=== PATIENT | female | born 1970 | race Hispanic/Latino ===

== ENCOUNTER 2018-08-21 18:04 | Emergency (ER) | payer OTHER ==
[2018-08-21] MEDS ORDERED: KETOROLAC TROMETHAMINE 60 MG/2 ML VIAL ONE (19:31)
== END 2018-08-21 20:15 | disposition home or self-care (01) ==
LOC: EDH 18:04
DX: S63.591A Other specified sprain of right wrist, initial encounter (principal); S43.492A Other sprain of left shoulder joint, initial encounter; S83.8X2A Sprain of other specified parts of left knee, initial encounter; S13.4XXA Sprain of ligaments of cervical spine, initial encounter; Z90.710 Acquired absence of both cervix and uterus; Y08.89XA Assault by other specified means, initial encounter; Y93.89 Activity, other specified; Y92.89 Other specified places as the place of occurrence of the external cause; Y99.8 Other external cause status
CPT/HCPCS: 72040; 73030; 73110; 73562; 96372; 99283; J1885